=== PATIENT | male | born 1965 | race Caucasian/White ===

== ENCOUNTER 2017-01-28 14:58 | Inpatient (IN) | payer BC, OTHER ==
[~2017-01-28] VITALS: Ht 180.3 cm; Wt 99.8 kg
[2017-01-28 15:13] LABS: RED BLOOD COUNT 5.33 M/UL (4.20-5.50); WHITE BLOOD COUNT 14.8 K/UL (4.5-11.0)
[2017-01-28 15:34] LABS: BUN/CREATININE RATIO 11 (0-10)
[2017-01-28] MEDS ORDERED: HYDROCHLOROTHIA25 MG PO (17:35)
[2017-01-29 04:58] LABS: HEMOGLOBIN 15.6 gm/dl (14.0-17.5); WHITE BLOOD COUNT 16.2 K/UL (4.5-11.0)
[2017-01-29 05:50] LABS: BUN/CREATININE RATIO 15 (0-10)
[2017-01-31] MEDS ORDERED: LIPITOR TAB 2020 MG PO (09:51)
[2017-01-31] MEDS ORDERED: ASPIRIN EC81 MG PO (09:51)
[2017-01-31] MEDS ORDERED: ZESTRIL/PRINIVI10 MG PO (09:52)
[2017-01-31] MEDS ORDERED: ALDACTONE25 MG PO (09:53)
[2017-01-31] MEDS ORDERED: LOPRESSOR 25 MG25 MG PO (09:53)
[2017-01-31] MEDS ORDERED: BRILINTA90 MG PO (09:54)
[2017-01-31] MEDS ORDERED: NITROSTAT0.4 MG SL (09:55)
== END 2017-01-31 16:45 | disposition home or self-care (01) | DRG 246 ==
LOC: ER1 14:58 → CCU 15:15 → ZEROF 15:15 → CCU 18:17
PROVIDERS: Emergency Medicine; ADMIT Internal Medicine Cardiovascular Disease
PROC: 027035Z Dilation of Coronary Artery, One Artery with Two Drug-eluting Intraluminal Devices, Percutaneous Approach (ICD-10-PCS; principal; 2017-01-28)
PROC: 02C03ZZ Extirpation of Matter from Coronary Artery, One Artery, Percutaneous Approach (ICD-10-PCS; 2017-01-28)
PROC: 4A023N7 Measurement of Cardiac Sampling and Pressure, Left Heart, Percutaneous Approach (ICD-10-PCS; 2017-01-28)
PROC: B2111ZZ Fluoroscopy of Multiple Coronary Arteries using Low Osmolar Contrast (ICD-10-PCS; 2017-01-28)
PROC: B2151ZZ Fluoroscopy of Left Heart using Low Osmolar Contrast (ICD-10-PCS; 2017-01-28)
PROC: B3101ZZ Fluoroscopy of Thoracic Aorta using Low Osmolar Contrast (ICD-10-PCS; 2017-01-28)
DX: I21.09 ST elevation (STEMI) myocardial infarction involving other coronary artery of anterior wall (principal); I50.21 Acute systolic (congestive) heart failure; I25.10 Atherosclerotic heart disease of native coronary artery without angina pectoris; E78.5 Hyperlipidemia, unspecified; I11.0 Hypertensive heart disease with heart failure; E11.9 Type 2 diabetes mellitus without complications; F17.200 Nicotine dependence, unspecified, uncomplicated; Z82.49 Family history of ischemic heart disease and other diseases of the circulatory system; Z91.14 Patient's other noncompliance with medication regimen; Z63.5 Disruption of family by separation and divorce; Z79.899 Other long term (current) drug therapy
CPT/HCPCS: ECHO; 36415; 71010; 80048; 80053; 80061; 82550; 82553; 83874; 84484; 85025; 85027; 85347; 85610; 85730; 93005; 93306; 96374; 96375; 99285; C1725; C1757; C1769; C1874; C1887; C9600; J0461; J0583; J1644; J2001; J2250; J2405; J3010; J7040; Q9965